=== PATIENT | female | born 1980 | race Caucasian/White ===

== ENCOUNTER → 2023-06-24 | Emergency (ER) | payer MEDICAID ==
[~2023-06-24] VITALS: Ht 175.3 cm; Wt 105.3 kg
[2023-06-24 08:40] VITALS: BP 145/90; PULSE 71; RESP 16; TEMP 98; O2SAT 99
== END | disposition home or self-care (01) ==
LOC: ER 08:17
DX: F15.10 Other stimulant abuse, uncomplicated (principal)
CPT/HCPCS: 99281